=== PATIENT | male | born 1960 | race Two or more races ===

== ENCOUNTER 2022-05-07 12:11 | Emergency (ER) | payer MEDICAID, OTHER ==
[~2022-05-07] VITALS: Ht 172.7 cm; Wt 86.1 kg
[2022-05-07 13:54] VITALS: BP 134/79
== END 2022-05-07 15:26 | disposition home or self-care (01) ==
LOC: ER 12:13
DX: S00.83XA Contusion of other part of head, initial encounter (principal); S00.03XA Contusion of scalp, initial encounter; Y04.2XXA Assault by strike against or bumped into by another person, initial encounter; Y93.89 Activity, other specified; Y92.89 Other specified places as the place of occurrence of the external cause; Y99.8 Other external cause status
CPT/HCPCS: 70450